=== PATIENT | male | born 1970 | race Caucasian/White ===

== ENCOUNTER 2021-07-26 16:56 | Emergency (ER) | payer OTHER, MEDICAID, SELFPAY ==
[2021-07-26] VITALS (8 sets, daily range): BP systolic 111–139; BP diastolic 61–82; PULSE 78–97; RESP 16–18; TEMP 36.7; O2SAT 95–100; BMI 23.0
--- NOTE | 2021-07-26 20:06 | ED.MALEGU ---
HPI - Male Genitourinary General Chief complaint: Urogenital-Male Stated complaint: SCROTAL SWELLING SOB Time Seen by Provider: 07/26/21 19:39 Source: patient Mode of arrival: Ambulatory History of Present Illness HPI Narrative: 51M nonsmoker with history of diabetes presents with the chief complaint of severe scrotal pain and swelling for the past 2-3 days. He denies any injury. He denies any fever chills but states he generally feels unwell and is nauseated. He denies runny nose, sore throat or cough. He has no chest pain or shortness of breath. He states he has been taking his medications as directed. He denies any recent trauma or injury. He denies any difficulty urinating. Related Data Home Medications Medication Instructions Recorded Confirmed lisdexamfetamine 70 mg capsule 70 mg PO QDAY #0 10/10/12 (Vyvanse) diazepam 5 mg tablet (Valium) 5 mg PO BID #0 11/18/12 Allergies Allergy/AdvReac Type Severity Reaction Status Date / Time Sulfa (Sulfonamide Allergy Verified 07/26/21 16:59 Antibiotics) Review of Systems Review of Systems Narrative: GENERAL: See HPI HEENT: Denies sinus pain, ear pain, sore throat, difficulty swallowing, dizziness. RESPIRATORY: Denies dyspnea, cough, wheezing, hemoptysis, sputum. CARDIOVASCULAR: Denies chest pain, palpitations, orthopnea, edema, GASTROINTESTINAL: See HPI : Denies dysuria, frequency, incontinence, hematuria, urinary retention. MUSCULOSKELETAL: denies weakness, joint pain, or bony pain SKIN: See HPI NEUROLOGIC: Denies weakness, headache, numbness, change in speech, confusion, seizures, incoordination. PSYCHIATRIC: No concerning psychosocial issues. 12 point review of systems is negative except for those stated above Patient History Social History Smoking Status: Never smoker Smoking Status: Never smoker alcohol intake frequency: other Substance Use Type: marijuana Exam Narrative Exam Narrative: GENERAL: [51 year old patient appears stated age. Well-developed patient, in mild distress. HEAD: Atraumatic. Normocephalic. EYES: Pupils equal round and reactive. Extraocular motions intact. No scleral icterus. No injection or drainage. ENT: Nose without bleeding, purulent drainage. Throat without erythema, tonsillar hypertrophy or exudate. Airway patent. NECK: Trachea midline. Non tender CARDIOVASCULAR: Regular rate and rhythm without murmurs, gallops, or rubs. RESPIRATORY: Clear to auscultation. Breath sounds equal bilaterally. No wheezes, rales, or rhonchi. GASTROINTESTINAL: Abdomen soft, non-tender, nondistended. : significant edema and erythema, weeping tissue with some dark discoloration, minimal induration, no fluctuance, no crepitance. No involvement of penis EXTREMITIES: No edema or joint tenderness. BACK: Nontender without deformity or crepitance. No flank tenderness. NEURO: AOx3. SKIN: No rash or erythema of visible areas Initial Vital Signs Initial Vital Signs: Vital Signs Temperature 98.1 F 07/26/21 16:59 Pulse Rate 97 H 07/26/21 16:59 Respiratory Rate 18 07/26/21 16:59 Blood Pressure 126/82 07/26/21 16:59 Pulse Oximetry 97 07/26/21 16:59 Course Course Course Narrative: patient seen at bedside early in visit by general surgeon who shares opinion and concern for exam. Will order labs and imaging 2330 - no local urology available, call placed to Urology. After reviewing case they too share concern and suggest this case would be typically sent to [facility], but request for local surgical involvement prior to transfer. 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 Pabon ( Urology) will be accepting. EMS called Orders Ordered: ED Orders 07/26/21 21:27 Blood Culture Stat 07/27/21 05:00 COVID19 -Nasal RAPID/Pre-Proc Stat Discontinued Medications Hydromorphone HCl (Hydromorphone 0.5 Mg Inj) 0.5 mg IV NOW ONE Stop: 07/26/21 21:42 Last Admin: 07/26/21 21:50 Dose: 0.5 mg Documented by: ROSSI Hydromorphone HCl (Hydromorphone 0.5 Mg Inj) 0.5 mg IV NOW ONE Stop: 07/26/21 22:57 Last Admin: 07/26/21 23:04 Dose: 0.5 mg Documented by: ZIGGY Hydromorphone HCl (Hydromorphone 1 Mg Inj) 1 mg IV NOW ONE Stop: 07/27/21 06:20 Sodium Chloride (Normal Saline 0.9%) 1,000 mls @ 1,000 mls/hr IV BOLUS ONE Stop: 07/26/21 21:57 Last Infusion: 07/26/21 22:55 Dose: 0 mls/hr Documented by: Admin: 07/26/21 21:11 Dose: 1,000 mls/hr Documented by: LYNDON Piperacillin Sod/Tazobactam (Sod 4.5 gm/ Sodium Chloride) 100 mls @ 200 mls/hr IV NOW ONE Stop: 07/26/21 20:59 Last Infusion: 07/26/21 21:44 Dose: 0 mls/hr Documented by: Admin: 07/26/21 21:11 Dose: 200 mls/hr Documented by: LYNDON Vital Signs Vital signs: Vital Signs - 8 hr 07/26/21 22:30 07/26/21 23:00 07/26/21 23:30 Pulse Rate 81 87 Blood Pressure 118/69 111/66 122/61 Pulse Oximetry 96 97 95 07/27/21 00:00 07/27/21 00:30 07/27/21 01:00 Pulse Rate 77 72 74 Blood Pressure 109/59 L 112/64 114/70 Pulse Oximetry 95 96 96 07/27/21 01:30 07/27/21 02:00 07/27/21 02:30 Pulse Rate 74 67 70 Blood Pressure 125/60 136/76 133/70 Pulse Oximetry 97 100 97 MDM - Male Genitourinary Lab Data Result diagrams: 07/26/21 21:15 07/26/21 21:15 Labs: Lab Results 07/26/21 07/26/21 07/26/21 Range/Units 21:15 21:15 21:15 WBC 7.9 (4.5-11.0) X10^3/uL RBC 4.25 L (4.5-5.9) X10^6/uL Hgb 12.3 L (13.5-17.5) g/dL Hct 36.8 L (41-53) % MCV 86.6 (80-100) fL MCH 29.0 (26-34) PG MCHC 33.5 (30-36) % RDW 14.1 (11.6-14.8) % Plt Count 201 (150-400) X10^3/uL Neut % (Auto) 67.7 (50-75) % Lymph % (Auto) 22.1 L (25-40) % Millard % (Auto) 7.9 (3-14) % Eos % (Auto) 1.9 L (2-4) % Baso % (Auto) 0.4 (0-2) % Neut # (Auto) 5300 (8357-1233) /uL Lymph # (Auto) 1700 (4556-7363) /uL Millard # (Auto) 600 (0-900) /uL Eos # (Auto) 100 (0-450) /uL Baso # (Auto) 0 (0-100) /uL Sodium 134 L (137-145) mmol/L Potassium 4.7 (3.4-5.1) mmol/L Chloride 103 (98-107) mmol/L Carbon Dioxide 27 (22-32) mmol/L BUN 28 H (9-20) mg/dL Creatinine 0.81 (0.66-1.25) mg/dL Estimated GFR > 60 (>60) mL/min BUN/Creatinine Ratio 34.6 H (6-22) Glucose 312 H (70-100) mg/dL Lactate 1.1 (0.7-2.1) mmol/L Calcium 8.1 L (8.4-10.2) mg/dL Total Bilirubin 0.3 (0.2-1.3) mg/dL AST 23 (17-59) IU/L ALT 23 (<50) IU/L Alkaline Phosphatase 71 (38-126) U/L Total Protein 6.6 (6.3-8.2) g/dL Albumin 3.6 (3.5-5.0) g/dL Globulin 3.0 (1.7-4.1) g/dL Albumin/Globulin Ratio 1.2 (1.0-2.8) SARS-CoV-2 (PCR) (Negative) 07/27/21 Range/Units 05:00 WBC (4.5-11.0) X10^3/uL RBC (4.5-5.9) X10^6/uL Hgb (13.5-17.5) g/dL Hct (41-53) % MCV (80-100) fL MCH (26-34) PG MCHC (30-36) % RDW (11.6-14.8) % Plt Count (150-400) X10^3/uL Neut % (Auto) (50-75) % Lymph % (Auto) (25-40) % Millard % (Auto) (3-14) % Eos % (Auto) (2-4) % Baso % (Auto) (0-2) % Neut # (Auto) (8294-8314) /uL Lymph # (Auto) (0467-3557) /uL Millard # (Auto) (0-900) /uL Eos # (Auto) (0-450) /uL Baso # (Auto) (0-100) /uL Sodium (137-145) mmol/L Potassium (3.4-5.1) mmol/L Chloride (98-107) mmol/L Carbon Dioxide (22-32) mmol/L BUN (9-20) mg/dL Creatinine (0.66-1.25) mg/dL Estimated GFR (>60) mL/min BUN/Creatinine Ratio (6-22) Glucose (70-100) mg/dL Lactate (0.7-2.1) mmol/L Calcium (8.4-10.2) mg/dL Total Bilirubin (0.2-1.3) mg/dL AST (17-59) IU/L ALT (<50) IU/L Alkaline Phosphatase (38-126) U/L Total Protein (6.3-8.2) g/dL Albumin (3.5-5.0) g/dL Globulin (1.7-4.1) g/dL Albumin/Globulin Ratio (1.0-2.8) SARS-CoV-2 (PCR) Negative (Negative) Imaging Data CT scan - abdomen/pelvis: Radiologist's Impression: TobiasdmYuri Ronak??51??M??1970 ? Allergy/Adv: Sulfa (Sulfonamide Antibiotics) (More??) Close Abdomen/Pelvis CT (Signed) NoelleTariq - 07/26/21 Launch?[address] [address] [address] Scan Report Signed Patient: Yuri Amado MR#: [id number] : 1970 Acct:[id number] Age/Sex: 51 / M Date of Service: 07/26/21 Loc: ED Accession Number: [id number] ?? Procedure: CT abdomen pelvis w con Ordering Provider: Toni Corea D.O. PROCEDURE:? CT ABDOMEN PELVIS W CON ? INDICATIONS:? pain, swelling drainage from scrotum ? TECHNIQUE:? After the administration of intravenous contrast, axial sections acquired from the lung bases to the pubic symphysis.? Coronal and sagittal reformats were performed.? For radiation dose reduction, the following was used:? automated exposure control, adjustment of mA and/or kV according to patient size.? ? COMPARISON:? None. ? FINDINGS:? Image quality:? Excellent.? ? Lung bases:? Mild bibasilar atelectasis. Heart:? No significant findings. ? ABDOMEN: Liver:? Unremarkable.? ? Gallbladder:? Gallbladder is decompressed but otherwise unremarkable.? ? Biliary ducts:? Unremarkable.? ? Pancreas:? Unremarkable.? ? Spleen:? Unremarkable.? ? Adrenal Glands:? Unremarkable.? ? Kidneys and Ureters:? Unremarkable.? ? ? Stomach and Bowel:? Stomach, small bowel loops, and colon are unremarkable.? Large amount of fecal material seen throughout the colon.? There is also fecalization of the distal small bowel likely related to fecal stasis.? No evidence for bowel obstruction.? Normal appendix. Peritoneum:? No abnormal intraperitoneal fluid.? No free air.? ? Ventral Wall: ? No hernias.? Abdominal Nodes:? No retroperitoneal or mesenteric adenopathy by size criteria.? Vessels:? Aorta and inferior vena cava are normal in size.? ? PELVIS: Pelvic Organs:? Prostate appears mildly prominent measuring approximately 4.3 x 4.8 cm in axial cross-sectional dimension. Bladder:? Mild urinary bladder distention. Pelvic Nodes: No enlarged lymph nodes.? Miscellaneous: No hernias are seen.? Extensive scrotal edema and likely large hydroceles. ?No abnormal subcutaneous soft tissue emphysema or free air.? No evidence for rim enhancing fluid collections.? ? ? Bones:? Unremarkable.? IMPRESSION:? ? 1. Extensive scrotal edema and likely large hydroceles without evidence for soft tissue gas or organized fluid collection.? No evidence for acute inflammatory changes extending into the peritoneal cavity.? Inflammatory stranding extends into the suprapubic subcutaneous soft tissue. ? 2. Otherwise, no acute abnormalities identified in the abdomen or pelvis. ? 3. Large amount of fecal material seen throughout the colon with fecalization of distal small bowel likely related to fecal stasis.? No evidence for bowel obstruction. ? 4. Normal appendix. ? 5. Prostate is prominent in size ? ? Dictated by: Tariq Drake M.D. on 07/26/2021 at 22:49 ? ? Approved by: Tariq Drake M.D. on 07/26/2021 at 22:59 ? Critical Care Time Critical Care Time Critical Care Time: Yes Total Critical Care Time: 45 Attestation: The high probability of a clinically significant, sudden or life threatening deterioration of the [] system(s) required my full and direct attention, intervention and personal management. The aggregate critical care time was [] minutes. This time is in addition to time spent performing reported procedures but includes the following: [x] Data Review and interpretation [x] Patient assessment and monitoring of vital signs [x] Documentation [x] Medication orders and management Discharge Plan Departure Patient Disposition: [facility] Clinical Impression: Genaro's gangrene of scrotum Prescriptions: No Action lisdexamfetamine [Vyvanse] 70 MG capsule 70 mg PO QDAY Qty: 0 0RF diazepam [Valium] 5 MG tablet 5 mg PO BID Qty: 0 0RF
--- NOTE | 2021-07-26 20:50 | DI.CT.S_ITS ---
PROCEDURE: CT ABDOMEN PELVIS W CON INDICATIONS: pain, swelling drainage from scrotum TECHNIQUE: After the administration of intravenous contrast, axial sections acquired from the lung bases to the pubic symphysis. Coronal and sagittal reformats were performed. For radiation dose reduction, the following was used: automated exposure control, adjustment of mA and/or kV according to patient size. COMPARISON: None. FINDINGS: Image quality: Excellent. Lung bases: Mild bibasilar atelectasis. Heart: No significant findings. ABDOMEN: Liver: Unremarkable. Gallbladder: Gallbladder is decompressed but otherwise unremarkable. Biliary ducts: Unremarkable. Pancreas: Unremarkable. Spleen: Unremarkable. Adrenal Glands: Unremarkable. Kidneys and Ureters: Unremarkable. Stomach and Bowel: Stomach, small bowel loops, and colon are unremarkable. Large amount of fecal material seen throughout the colon. There is also fecalization of the distal small bowel likely related to fecal stasis. No evidence for bowel obstruction. Normal appendix. Peritoneum: No abnormal intraperitoneal fluid. No free air. Ventral Wall: No hernias. Abdominal Nodes: No retroperitoneal or mesenteric adenopathy by size criteria. Vessels: Aorta and inferior vena cava are normal in size. PELVIS: Pelvic Organs: Prostate appears mildly prominent measuring approximately 4.3 x 4.8 cm in axial cross-sectional dimension. Bladder: Mild urinary bladder distention. Pelvic Nodes: No enlarged lymph nodes. Miscellaneous: No hernias are seen. Extensive scrotal edema and likely large hydroceles. No abnormal subcutaneous soft tissue emphysema or free air. No evidence for rim enhancing fluid collections. Bones: Unremarkable. IMPRESSION: 1. Extensive scrotal edema and likely large hydroceles without evidence for soft tissue gas or organized fluid collection. No evidence for acute inflammatory changes extending into the peritoneal cavity. Inflammatory stranding extends into the suprapubic subcutaneous soft tissue. 2. Otherwise, no acute abnormalities identified in the abdomen or pelvis. 3. Large amount of fecal material seen throughout the colon with fecalization of distal small bowel likely related to fecal stasis. No evidence for bowel obstruction. 4. Normal appendix. 5. Prostate is prominent in size Dictated by: Tariq Drake M.D. on 07/26/2021 at 22:49 Approved by: Tariq Drake M.D. on 07/26/2021 at 22:59
[2021-07-26] MEDS: PIPERACILLIN/TAZO 4.5 GM in SODIUM CHLORIDE 0.9% 100 ML 200 ML IV (21:11)
[2021-07-26] MEDS: SODIUM CHLORIDE 0.9% 1,000 ML 1000 ML IV (21:11)
[2021-07-26 21:36] LABS: Add Manual Diff / Slide Review NO; Basophils Absolute Auto 0 /uL (0-100); Basophils Percent Auto 0.4 % (0-2); Eosinophils Absolute Auto 100 /uL (0-450); Eosinophils Percent Auto 1.9 % (2-4); Hematocrit 36.8 % (41-53); Hemoglobin 12.3 g/dL (13.5-17.5); Lymphocytes Absolute Auto 1700 /uL (1100-4500); Lymphocytes Percent Auto 22.1 % (25-40); Mean Corpuscular HGB Conc 33.5 % (30-36); Mean Corpuscular Volume 86.6 fL (80-100); Monocytes Absolute Auto 600 /uL (0-900); Monocytes Percent Auto 7.9 % (3-14); Neutrophils Absolute Auto 5300 /uL (1500-7000); Neutrophils Percent Auto 67.7 % (50-75); Platelet Count 201 X10^3/uL (150-400); Red Blood Cell Count 4.25 X10^6/uL (4.5-5.9); Red Cell Distribution Width 14.1 % (11.6-14.8); White Blood Cell Count 7.9 X10^3/uL (4.5-11.0)
[2021-07-26 21:46] LABS: Alanine Aminotransferase 23 IU/L (<50); Albumin 3.6 g/dL (3.5-5.0); Albumin Globulin Ratio 1.2 (1.0-2.8); Alkaline Phosphatase 71 U/L (38-126); Aspartate Aminotransferase 23 IU/L (17-59); BUN Creatinine Ratio 34.6 (6-22); Bilirubin Total 0.3 mg/dL (0.2-1.3); Blood Urea Nitrogen 28 mg/dL (9-20); Calcium 8.1 mg/dL (8.4-10.2); Carbon Dioxide 27 mmol/L (22-32); Chloride 103 mmol/L (98-107); Estimated Glomerular Filt Rate > 60 mL/min (>60); Glucose 312 mg/dL (70-100); HEMOLYSIS < 15 (0-50); Potassium 4.7 mmol/L (3.4-5.1); Sodium 134 mmol/L (137-145); Total Protein 6.6 g/dL (6.3-8.2)
[2021-07-26 21:47] LABS: Lactate (Lactic Acid) 1.1 mmol/L (0.7-2.1)
[2021-07-26] MEDS: HYDROMORPHONE 0.5 MG INJ IV ×2 (21:50→23:04)
[2021-07-27] VITALS (15 sets, daily range): BP systolic 102–150; BP diastolic 55–77; PULSE 64–87; O2SAT 78–100
--- NOTE | 2021-07-27 00:28 | PC.NURSE ---
Pt requesting additional pain meds. Dr. Corea made aware. States he wants to wait for Dr. Rudolph to come and evaluate pt first
[2021-07-27 05:19] LABS: COVID19 -Nasal RAPID Negative (Negative)
[2021-07-27] MEDS: HYDROMORPHONE 1 MG INJ IV (06:25)
== END 2021-07-27 06:50 | disposition short-term general hospital (02) ==
PROVIDERS: Emergency Provider Emergency Medicine
DX: N49.3 Fournier gangrene (principal); Z88.2 Allergy status to sulfonamides; Z20.822 Contact with and (suspected) exposure to COVID-19
CPT/HCPCS: 36415; 74177; 80053; 83605; 85025; 87040; 87635; 96361; 96365; 96375; 96376; 99284; 99291; C9803; J1170; J2543; Q9967

== ENCOUNTER 2021-07-30 19:40 | Emergency (ER) | payer OTHER, MEDICAID, SELFPAY ==
[2021-07-30 19:46] VITALS: BP 147/107; PULSE 88; RESP 15; TEMP 36.2; O2SAT 97; BMI 24.4
--- NOTE | 2021-07-30 20:39 | ED_ITS ---
HPI - Skin/Abscess/Foreign Bdy General Chief complaint: Skin/Abscess/Foreign Body Stated complaint: possible infected scrotum Time Seen by Provider: 07/30/21 20:35 Source: patient Mode of arrival: Ambulatory Limitations: no limitations History of Present Illness HPI narrative: 51M nonsmoker with history of diabetes presents and recent evaluation for significant scrotal cellulitis and possible Genaro's with transfer to [facility] presents for a recheck. He states he feels significantly better and admits there is much less swelling and pain in his scrotum. He denies any fever, chills weakness nor nausea or vomiting. I had seen and evaluated him a few days ago and after extensive evaluation and imaging patient was transferred to [facility]. He was admitted there for a few days and followed very closely, he never had any surgical intervention or debridement and responded quite well to antibiotics. He was discharged on oral antibiotics and presents today under these circumstances. Related Data Home Medications Medication Instructions Recorded Confirmed lisdexamfetamine 70 mg capsule 70 mg PO QDAY #0 10/10/12 (Vyvanse) diazepam 5 mg tablet (Valium) 5 mg PO BID #0 11/18/12 Previous Rx's Medication Instructions Recorded oxycodone 5 mg tablet 5 mg PO Q4-6H PRN #10 tab 07/30/21 Allergies Allergy/AdvReac Type Severity Reaction Status Date / Time Sulfa (Sulfonamide Allergy Verified 07/30/21 19:46 Antibiotics) Review of Systems Review of Systems Narrative: GENERAL: See HPI HEENT: Denies sinus pain, ear pain, sore throat, difficulty swallowing, di zziness. RESPIRATORY: Denies dyspnea, cough, wheezing, hemoptysis, sputum. CARDIOVASCULAR: Denies chest pain, palpitations, orthopnea, edema, GASTROINTESTINAL: Denies nausea, vomiting, abdominal pain, diarrhea, constipation, melena. : See HPI MUSCULOSKELETAL: denies weakness, joint pain, or bony pain SKIN: Denies rash, skin lesions, or other NEUROLOGIC: Denies weakness, headache, numbness, change in speech, confusion, seizures, incoordination. PSYCHIATRIC: No concerning psychosocial issues. 12 point review of systems is negative except for those stated above Patient History Social History Smoking Status: Never smoker Smoking Status: Never smoker alcohol intake frequency: holidays/special occasions only Substance Use Type: marijuana Exam Narrative Exam Narrative: GENERAL: [51 year old patient appears stated age. Well-developed patient, in mild distress. HEAD: Atraumatic. Normocephalic. EYES: Pupils equal round and reactive. Extraocular motions intact. No scleral icterus. No injection or drainage. ENT: Nose without bleeding, purulent drainage. Throat without erythema, tonsillar hypertrophy or exudate. Airway patent. NECK: Trachea midline. Non tender CARDIOVASCULAR: Regular rate and rhythm without murmurs, gallops, or rubs. RESPIRATORY: Clear to auscultation. Breath sounds equal bilaterally. No wheezes, rales, or rhonchi. GASTROINTESTINAL: Abdomen soft, non-tender, nondistended. : mild scrotal swelling and erythema, significantly improved. No edema or drainage. No crepitance. Dark scab noted across superior aspect, again greatly improved. EXTREMITIES: No edema or joint tenderness. BACK: Nontender without deformity or crepitance. No flank tenderness. NEURO: AOx3. SKIN: No rash or erythema of visible areas Initial Vital Signs Initial Vital Signs: Vital Signs Temperature 97.2 F L 07/30/21 19:46 Pulse Rate 88 07/30/21 19:46 Respiratory Rate 15 07/30/21 19:46 Blood Pressure 147/107 H 07/30/21 19:46 Pulse Oximetry 97 07/30/21 19:46 Course Orders Ordered: Discontinued Medications Oxycodone/Acetaminophen (Oxycodone/Apap 5/325 Prepack) 1 bottle [facility] SEE[facility] ONE Stop: 07/30/21 20:40 Last Admin: 07/30/21 20:47 Dose: 1 bottle Documented by: ARABELLA Vital Signs Vital signs: Vital Signs - 8 hr 07/30/21 19:46 Temperature 97.2 F L Pulse Rate 88 Respiratory Rate 15 Blood Pressure 147/107 H Pulse Oximetry 97 MDM - Skin/Abscess/Foreign Bdy MDM Narrative Medical decision making narrative: Patient returns for repeat evaluation of scrotal infection. He had been hospitalized at an outside facility and on IV antibiotics but never required any surgical intervention. He was discharged on oral antibiotics which he continues to take as directed. He shows significant improvement over his last visit and shows no signs of Genaro's, abscess or other diagnosis which would require any intervention other than that which she is currently undergoing. Return precautions discussed, contact for local urology given and questions answered to his apparent satisfaction Discharge Plan Departure Patient Disposition: Home Clinical Impression: Cellulitis of scrotum Instructions: DI for Cellulitis -- Adult Activity Restrictions/Additional Instructions: *You have been diagnosed with [scrotal cellulitis. As we discussed, your infection shows significant improvement from the last time I saw you. There is no need for labs and further workup today] *What to do: *Please continue to take your regular medications as directed. [x] New medication prescriptions sent to your pharmacy: [ [facility]] [ ] New medication written as a paper prescription [ ] No new medications given *Please follow up as directed upon discharge from [facility] call for an appoi ntment. Let them know you were seen in the Emergency Department and that we ask that you be seen in follow up. We will electronically transmit a record of today's note if your PCP is in our system * as we discussed I have included contact info, below, for local urology which is another appropriate place to follow *If you do not have a primary care provider please contact the [facility] Resource line at [phone]. They will ask some questions about your medical history and help get you set up with a doctor in the community. *Return to Emergency Department if you should have any new, worsening or concerning symptoms, such as [fever greater than 101 F, shaking chills, worsening pain, persistent vomiting or other bothersome symptoms] You have been prescribed a short course of narcotic medications. These are potentially dangerous and addictive medications that should be used carefully. While on these medications you cannot drive or operate heavy machinery. Additionally, you cannot sign legal documents or perform any duties such as this. Many people get constipated on narcotic medications so it would be advisable to discuss stool softeners with the pharmacist when you pickle processor your prescription. Please understand that we cannot provide further refills of narcotics or controlled substances through the ED and your pain management will need to be through your Primary Care Provider Prescriptions: New oxycodone 5 mg tablet 5 mg PO Q4-6H PRN (Reason: pain) Qty: 10 0RF No Action lisdexamfetamine [Vyvanse] 70 MG capsule 70 mg PO QDAY Qty: 0 0RF diazepam [Valium] 5 MG tablet 5 mg PO BID Qty: 0 0RF Referrals: Vega Delaney MD [Physician] -
[2021-07-30] MEDS: OXYCODONE/APAP 5/325 PREPACK 1 BOTTLE MISC (20:47)
== END 2021-07-30 20:57 | disposition home or self-care (01) ==
PROVIDERS: Emergency Provider Emergency Medicine
DX: N49.2 Inflammatory disorders of scrotum (principal)
CPT/HCPCS: 99281

== ENCOUNTER 2021-08-01 17:40 | Emergency (ER) | payer OTHER, MEDICAID, SELFPAY ==
[2021-08-01 18:04] VITALS: BP 140/81; PULSE 105; RESP 20; TEMP 36.2; O2SAT 99; BMI 24.4
--- NOTE | 2021-08-01 20:51 | ED_ITS ---
HPI - General Adult General Chief complaint: Urogenital-Male Stated complaint: scrotal pain Time Seen by Provider: 08/01/21 20:44 Source: patient Mode of arrival: Ambulatory History of Present Illness HPI narrative: Patient is a 51-year-old male. 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 He received no surgical treatment and responded well to antibiotics. He was seen here in the ER couple days ago for continued discomfort. According to the note from the provider at that time his symptoms have been improving and the patient agree this symptoms were improving. He was discharged home with a short prescription of pain medication. He returns emergency department today for continued pain. He states he ran out of the pain medicine that was prescribed to him a couple days ago. He does have a follow-up with his primary doctor within the next couple days. He states that the infection in his scrotum is improving. He states that is less swollen. He continues to be able to tolerate the oral antibiotics without problems. Denies any fevers. He states that the issue that he is having is he that he continues to have discomfort in does not have pain control at home. Related Data Home Medications Medication Instructions Recorded Confirmed lisdexamfetamine 70 mg capsule 70 mg PO QDAY #0 10/10/12 (Vyvanse) diazepam 5 mg tablet (Valium) 5 mg PO BID #0 11/18/12 Previous Rx's Medication Instructions Recorded oxycodone 5 mg tablet 5 mg PO Q4-6H PRN #10 tab 07/30/21 oxycodone-acetaminophen 5 mg-325 1 tab PO Q8H PRN #10 tab 08/01/21 mg tablet (Percocet) Allergies Allergy/AdvReac Type Severity Reaction Status Date / Time Sulfa (Sulfonamide Allergy Verified 07/30/21 19:46 Antibiotics) Review of Systems Constitutional Comments: No fevers Gastrointestinal Comments: No abdominal pain Genitourinary Comments: Scrotal pain Integumentary/Breasts Comments: Redness to his scrotum Hematologic/Lymphatic On Anticoagulants: No Patient History Medical History (Updated 08/02/21 @ 04:46 by Jonny Cervantes DO) Genaro's gangrene Social History Smoking Status: Former smoker Smoking Status: Former smoker alcohol intake frequency: holidays/special occasions only Substance Use Type: marijuana Exam Initial Vital Signs Initial Vital Signs: Vital Signs Temperature 97.1 F L 08/01/21 18:04 Pulse Rate 105 H 08/01/21 18:04 Respiratory Rate 20 08/01/21 18:04 Blood Pressure 140/81 08/01/21 18:04 Pulse Oximetry 99 08/01/21 18:04 Const General: cooperative and healthy appearing Resp Effort & Inspection: normal respiratory effort Cardio Rate: regular rate Skin Other: Does have redness and some superficial ulcerations of his scrotum. Neuro General: patient alert and patient awake Extrem General: normal to inspection Course Orders Ordered: Discontinued Medications Oxycodone/Acetaminophen (Oxycodone/Apap 5/325 Prepack) 1 bottle [facility] SEEINSTR ONE Stop: 08/01/21 20:52 Last Admin: 08/01/21 20:58 Dose: 1 bottle Documented by: PRITI Vital Signs Vital signs: Vital Signs - 8 hr 08/01/21 21:06 Pulse Rate 86 Respiratory Rate 20 Blood Pressure 136/71 Pulse Oximetry 99 Medical Decision Making [facility] Narrative Medical decision making narrative: This is the 1st time that I have evaluated the patient and he does have findings consistent with an infection in his scrotum however he reports that he is tolerating his oral antibiotics well and he feels that the swelling and the redness and his general overall infection is improving on his current regiment. I completely believe that the patient is having discomfort related to this infection given the sensitive location of it. Will provide continued pain support for him. He was instructed that he needs to make sure that he is on a good bowel regimen to avoid complications from the medication. He has a follow- up with his primary doctor already scheduled. No labs or imaging studies required today based on the patient's reported continued improvement of symptoms. He was given return precautions. He expressed understanding and agreement. Discharge Plan Departure Patient Disposition: Home Clinical Impression: Genaro's gangrene, Pain in scrotum, Cellulitis of scrotum Activity Restrictions/Additional Instructions: Continue to take all of the antibiotics as directed. Keep your scheduled appointment your primary doctor next week. 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 Return to the emergency department for any new or worsening symptoms. Prescriptions: New oxycodone-acetaminophen [Percocet] 5-325 mg tablet 1 tab PO Q8H PRN (Reason: pain) Qty: 10 0RF No Action lisdexamfetamine [Vyvanse] 70 MG capsule 70 mg PO QDAY Qty: 0 0RF diazepam [Valium] 5 MG tablet 5 mg PO BID Qty: 0 0RF oxycodone 5 mg tablet 5 mg PO Q4-6H PRN (Reason: pain) Qty: 10 0RF
[2021-08-01] MEDS: OXYCODONE/APAP 5/325 PREPACK 1 BOTTLE MISC (20:58)
[2021-08-01 21:06] VITALS: BP 136/71; PULSE 86; RESP 20; O2SAT 99
--- NOTE | 2021-08-01 21:07 | PC.NURSE ---
pt states he was diagnosed with gangrene of scrotum last week and ran out of medications for pain. he was told to return to the ER if this happens. physical assessment referred to provider, see provider notes.
== END 2021-08-01 21:11 | disposition home or self-care (01) ==
PROVIDERS: Emergency Provider Emergency Medicine
DX: N49.3 Fournier gangrene (principal); N49.2 Inflammatory disorders of scrotum
CPT/HCPCS: 99281; 99282

== ENCOUNTER 2021-08-03 17:15 | Emergency (ER) | payer OTHER, MEDICAID, SELFPAY ==
[2021-08-03 17:27] VITALS: BP 142/67; PULSE 83; RESP 19; TEMP 36.6; O2SAT 99; BMI 23.7
--- NOTE | 2021-08-03 18:49 | ED_ITS ---
HPI - Recheck/Abnormal Lab/Rx General Chief Complaint: Recheck/Abnormal Lab/Rx Stated Complaint: Scrotum infection Time Seen by Provider: 08/03/21 18:00 Source: patient Mode of arrival: Family Vehicle Limitations: no limitations History of Present Illness HPI narrative: 51-year-old male with history of Genaro's gangrene. Is also an insulin- dependent diabetic. Was initially seen in this emergency department and transferred with initial diagnosis of Genaro's gangrene. Did not require surgery. Was placed on antibiotics. Is still currently on antibiotics. I evaluated him just a few days ago where he stated that he was on his antibiotics however he was having quite a bit of discomfort. He has a follow-up this primary doctor later this week. I did refill pain medication. Discharged home. Since that time he states that the redness has improved but he is still having quite a bit discomfort in his scrotum. He describes it as a burning and itching and tingling sensation. He is not at the fevers. He still scheduled to follow- up with his primary doctor early next week. He has been taking his blood sugars at home and he states that they are remaining high and he thinks it is because of the discomfort he is in and also the infection. He is taking his Lantus twice a day. He has been on a short-acting insulin in the past but not currently. Related Data Home Medications Medication Instructions Recorded Confirmed lisdexamfetamine 70 mg capsule 70 mg PO QDAY #0 10/10/12 (Vyvanse) diazepam 5 mg tablet (Valium) 5 mg PO BID #0 11/18/12 Previous Rx's Medication Instructions Recorded oxycodone 5 mg tablet 5 mg PO Q4-6H PRN #10 tab 07/30/21 oxycodone-acetaminophen 5 mg-325 1 tab PO Q8H PRN #10 tab 08/01/21 mg tablet (Percocet) insulin lispro 100 unit/mL 1 sliding scale dose SUBCUT 08/03/21 subcutaneous pen USEASDIRECTD #3 ml oxycodone-acetaminophen 5 mg-325 1 tab PO Q8H PRN #20 tab 08/03/21 mg tablet Allergies Allergy/AdvReac Type Severity Reaction Status Date / Time Sulfa (Sulfonamide Allergy Verified 08/03/21 17:32 Antibiotics) Review of Systems Constitutional Comments: No fevers Gastrointestinal Comments: No abdominal pain Genitourinary Comments: Scrotal infection and pain Integumentary/Breasts Comments: Redness and swelling of the scrotum Neurologic Neurologic: Reports system reviewed and no additional complaints, except as documented Hematologic/Lymphatic On Anticoagulants: No Patient History Medical History Genaro's gangrene Insulin dependent diabetes mellitus Social History Smoking Status: Former smoker Smoking Status: Former smoker tobacco type: cigarettes alcohol intake frequency: holidays/special occasions only Substance Use Type: marijuana Exam Initial Vital Signs Initial Vital Signs: Vital Signs Temperature 97.8 F 08/03/21 17:27 Pulse Rate 83 08/03/21 17:27 Respiratory Rate 19 08/03/21 17:27 Blood Pressure 142/67 H 08/03/21 17:27 Pulse Oximetry 99 08/03/21 17:27 HENMT Head: normal to inspection and normocephalic Resp Effort & Inspection: normal respiratory effort Cardio Rate: regular rate GI Inspection: normal to inspection Other: Penis is unremarkable. Patient's scrotum is red and swollen with areas of eschar and open wounds. Skin Other: see gu section Neuro General: patient alert, patient awake, patient oriented x3 and moves all extremities Extrem General: normal to inspection Course Orders Ordered: Discontinued Medications Oxycodone/Acetaminophen (Oxycodone/Apap 5/325 Prepack) 1 bottle [facility] SEEINSTR ONE Stop: 08/03/21 19:05 Last Admin: 08/03/21 19:07 Dose: 1 bottle Documented by: JUAN Vital Signs Vital signs: Vital Signs - 8 hr 08/03/21 17:27 Temperature 97.8 F Pulse Rate 83 Respiratory Rate 19 Blood Pressure 142/67 H Pulse Oximetry 99 MDM - Recheck/Abnormal Lab/Rx MDM Narrative Medical decision making narrative: History of Genaro's gangrene and his physical exam today is consistent with that. He is still currently on antibiotics. His exam today is actually improved from when I saw him a couple days ago. It is still red and has areas of open sores an eschar. I suspect that the discomfort that he is having is related to the infection, the sensitive location of the infection, the wounds that her there and the location of the wounds. I have no doubt this is a painful process and because of this we will refill his pain medication. I feel that after he sees his primary doctor in a couple days there should be some hesitation of providing further pain medication out of the emergency department. Patient states that he takes his blood sugar at home and they are routinely greater than 150 despite his use of the long-acting insulin. He has been on a short-acting insulin in the past and is comfortable taking it and would like to have short-acting insulin to take at home during this. . He was provided a prescription of lispro. He is nontoxic appearing. Do not feel a need for any further radiologic studies. He was once again provided return precautions and follow-up instructions. He expressed understanding agreement. Discharge Plan Departure Patient Disposition: Home Clinical Impression: Cellulitis of scrotum Activity Restrictions/Additional Instructions: He do need to continue to take all of your medications as directed. Keep your appointment with your primary doctor next week. Take the medications as directed. Return to the emergency department for any new or worsening symptoms. Prescriptions: New oxycodone-acetaminophen 5-325 mg tablet 1 tab PO Q8H PRN (Reason: pain) Qty: 20 0RF insulin lispro 100 unit/mL insulin pen 1 sliding scale dose SUBCUT USEASDIRECTD Qty: 3 0RF Rx Instructions: 1Unit for every 50 points above 200 as directed No Action lisdexamfetamine [Vyvanse] 70 MG capsule 70 mg PO QDAY Qty: 0 0RF diazepam [Valium] 5 MG tablet 5 mg PO BID Qty: 0 0RF oxycodone 5 mg tablet 5 mg PO Q4-6H PRN (Reason: pain) Qty: 10 0RF oxycodone-acetaminophen [Percocet] 5-325 mg tablet 1 tab PO Q8H PRN (Reason: pain) Qty: 10 0RF
[2021-08-03] MEDS: OXYCODONE/APAP 5/325 PREPACK 1 BOTTLE MISC (19:07)
== END 2021-08-03 19:09 | disposition home or self-care (01) ==
PROVIDERS: Emergency Provider Emergency Medicine
DX: N49.2 Inflammatory disorders of scrotum (principal)
CPT/HCPCS: 99281